=== PATIENT | male | born 1990 | race African-American/Black ===

== ENCOUNTER 2020-08-30 15:38 | Inpatient (IN) | payer OTHER ==
[~2020-08-30] VITALS: Ht 182.9 cm; Wt 102.1 kg
[2020-08-30 17:10] VITALS: BP 133/67
[2020-08-30] MEDS ORDERED: CETIRIZINE HCL 10 MG TABLET PO PRN (17:15)
[2020-08-30] MEDS ORDERED: ACETAMINOPHEN 325 MG TABLET PO PRN (17:15)
[2020-08-30] MEDS ORDERED: OxyCODONE HCL 5 MG IR TABLET PO PRN (17:15)
[2020-08-30 17:45] VITALS: BP 133/67
[2020-08-30] MEDS ORDERED: ONDANSETRON HCL 4 MG TABLET PO PRN (17:45)
[2020-08-30] MEDS: ACETAMINOPHEN 325 MG TABLET PO SCH ×2 (18:48→23:11)
[2020-08-30] MEDS: DOCUSATE SODIUM 100 MG CAPSULE PO SCH (21:08)
[2020-08-30] MEDS: MELATONIN 3 MG TABLET PO PRN (21:08)
[2020-08-30] MEDS: SENNA 187 MG TABLET PO SCH (21:09)
[2020-08-30] MEDS: OxyCODONE HCL 10 MG IR TABLET PO PRN (21:20)
[2020-08-30] MEDS: CYCLOBENZAPRINE HCL 10 MG TABLET PO PRN (21:23)
[2020-08-30] MEDS ORDERED: HYDROmorphone 2 MG/ML SYRINGE IVP ONE (21:45)
[2020-08-30] MEDS: GABAPENTIN 300 MG CAPSULE PO SCH (23:11)
[2020-08-31] MEDS ORDERED: INFLUENZA VIRUS VACCINE QVS 2020-21 (6MO+)/PF 60 MCG/0.5 ML SYRINGE IM ONE (00:45)
[2020-08-31 01:22] VITALS: BP 126/60
[2020-08-31] MEDS: OxyCODONE HCL 10 MG IR TABLET PO PRN ×6 (01:22→21:53)
[2020-08-31] MEDS: ACETAMINOPHEN 325 MG TABLET PO SCH ×4 (05:49→23:37)
[2020-08-31 07:29] LABS: BASOPHILS % (AUTO) 0.3 % (0.0-2.0); HEMATOCRIT 23.1 % (41-53); HEMOGLOBIN 7.9 g/dL (13.5-17.5); LYMPHOCYTES # (AUTO) 1.8 K/uL (1.0-4.8); MEAN CORPUSCULAR VOLUME 80 fL (80-100); MONOCYTES # (AUTO) 0.8 K/uL (0.1-1.0); MONOCYTES % (AUTO) 7.6 % (2.0-9.0); NEUTROPHILS # (AUTO) 7.4 K/uL (1.8-7.7); NEUTROPHILS % (AUTO) 71.1 % (40.0-70.0); PLATELET COUNT (AUTO) 407 K/uL (150-450); RED BLOOD CELL COUNT(AUTO) 2.91 MIL/uL (4.50-5.90); RED CELL DISTRIBUTION WIDTH 14.6 % (11.5-14.5)
[2020-08-31 07:50] LABS: ALANINE AMINOTRANSFERASE 72 U/L (12-78); ALBUMIN 2.6 g/dL (3.4-5.0); ALKALINE PHOSPHATASE 89 U/L (46-116); ANION GAP 8 mmol/L (8-16); ASPARTATE AMINOTRANSFERASE 32 U/L (15-37); BILIRUBIN,TOTAL 0.6 mg/dL (0.1-1.0); CALCIUM, TOTAL 8.8 mg/dL (8.8-10.5); CARBON DIOXIDE 26 mmol/L (22-29); CHLORIDE 102 mmol/L (98-107); CREATININE 0.71 mg/dL (0.60-1.30); GLOMERULAR FILTR. RATE CALC > 60 mL/min (>60); GLUCOSE,RANDOM 105 mg/dL (70-110); POTASSIUM 3.9 mmol/L (3.5-5.1); SODIUM SERUM 136 mmol/L (136-145); TOTAL PROTEIN, SERUM 6.3 g/dL (6.4-8.2); UREA NITROGEN, BLOOD 13 mg/dL (7-18)
[2020-08-31] MEDS: CYCLOBENZAPRINE HCL 10 MG TABLET PO PRN (08:16)
[2020-08-31] MEDS: DOCUSATE SODIUM 100 MG CAPSULE PO SCH ×2 (08:16→21:00)
[2020-08-31] MEDS: CELECOXIB 200 MG CAPSULE PO SCH (08:16)
[2020-08-31] MEDS: GABAPENTIN 300 MG CAPSULE PO SCH ×3 (08:16→23:37)
[2020-08-31] MEDS: ENOXAPARIN SODIUM 40 MG/0.4 ML PF SYRINGE SQ SCH (08:17)
[2020-08-31] MEDS: POLYETHYLENE GLYCOL 3350 17 GM PACKET PO SCH (08:17)
[2020-08-31 09:15] VITALS: BP 129/72
[2020-08-31 18:03] VITALS: BP 128/69
[2020-08-31] MEDS: SENNA 187 MG TABLET PO SCH (21:00)
[2020-08-31] MEDS: MELATONIN 3 MG TABLET PO PRN (21:51)
[2020-09-01] MEDS: OxyCODONE HCL 10 MG IR TABLET PO PRN ×5 (01:53→21:29)
[2020-09-01] MEDS: ACETAMINOPHEN 325 MG TABLET PO SCH ×4 (05:39→23:47)
[2020-09-01 08:01] VITALS: BP 126/57
[2020-09-01] MEDS: POLYETHYLENE GLYCOL 3350 17 GM PACKET PO SCH (09:00)
[2020-09-01] MEDS: GABAPENTIN 300 MG CAPSULE PO SCH ×3 (09:42→23:47)
[2020-09-01] MEDS: DOCUSATE SODIUM 100 MG CAPSULE PO SCH (09:42)
[2020-09-01] MEDS: CELECOXIB 200 MG CAPSULE PO SCH (09:42)
[2020-09-01] MEDS: MULTIVITAMINS, THERAPEUTIC TABLET PO SCH (09:42)
[2020-09-01] MEDS: ENOXAPARIN SODIUM 40 MG/0.4 ML PF SYRINGE SQ SCH (09:43)
[2020-09-01] MEDS: FERROUS SULFATE 325 MG EC TABLET PO SCH (12:50)
[2020-09-01 16:26] VITALS: BP 128/69
[2020-09-01] MEDS: SENNA 187 MG TABLET PO SCH (21:00)
[2020-09-01] MEDS: MELATONIN 3 MG TABLET PO PRN (21:29)
[2020-09-02 00:10] VITALS: BP 129/62
[2020-09-02] MEDS: OxyCODONE HCL 10 MG IR TABLET PO PRN ×5 (01:50→20:00)
[2020-09-02] MEDS: ACETAMINOPHEN 325 MG TABLET PO SCH ×4 (06:01→23:29)
[2020-09-02] MEDS: CELECOXIB 200 MG CAPSULE PO SCH (07:50)
[2020-09-02] MEDS: FERROUS SULFATE 325 MG EC TABLET PO SCH (07:50)
[2020-09-02] MEDS: GABAPENTIN 300 MG CAPSULE PO SCH ×3 (07:50→23:28)
[2020-09-02 08:02] VITALS: BP 131/79
[2020-09-02] MEDS: DOCUSATE SODIUM 100 MG CAPSULE PO SCH ×2 (09:00→20:04)
[2020-09-02] MEDS: POLYETHYLENE GLYCOL 3350 17 GM PACKET PO SCH (09:00)
[2020-09-02] MEDS: MULTIVITAMINS, THERAPEUTIC TABLET PO SCH (10:39)
[2020-09-02] MEDS: ENOXAPARIN SODIUM 40 MG/0.4 ML PF SYRINGE SQ SCH (10:40)
[2020-09-02 19:25] VITALS: BP 134/69
[2020-09-02] MEDS: SENNA 187 MG TABLET PO SCH (20:05)
[2020-09-02] MEDS: MELATONIN 3 MG TABLET PO PRN (21:53)
[2020-09-03] VITALS: BP 120/62
[2020-09-03] MEDS: OxyCODONE HCL 10 MG IR TABLET PO PRN ×4 (01:34→20:16)
[2020-09-03] MEDS: ACETAMINOPHEN 325 MG TABLET PO SCH ×4 (06:07→23:55)
[2020-09-03 06:48] LABS: BASOPHILS % (AUTO) 0.9 % (0.0-2.0); EOSINOPHILS % (AUTO) 3.2 % (1.0-6.0); HEMATOCRIT 26.4 % (41-53); HEMOGLOBIN 8.8 g/dL (13.5-17.5); LYMPHOCYTES # (AUTO) 1.6 K/uL (1.0-4.8); LYMPHOCYTES % (AUTO) 24.1 % (22.0-44.0); MEAN CORPUSCULAR HEMOGLOBIN 26.8 pg (26.0-34.0); MEAN CORPUSCULAR HGB CONC 33.4 G/dL (31.0-37.0); MEAN CORPUSCULAR VOLUME 80 fL (80-100); MONOCYTES # (AUTO) 0.7 K/uL (0.1-1.0); MONOCYTES % (AUTO) 10.6 % (2.0-9.0); NEUTROPHILS % (AUTO) 61.2 % (40.0-70.0); PLATELET COUNT (AUTO) 341 K/uL (150-450); RED BLOOD CELL COUNT(AUTO) 3.28 MIL/uL (4.50-5.90); RED CELL DISTRIBUTION WIDTH 15.9 % (11.5-14.5)
[2020-09-03 06:59] LABS: ANION GAP 7 mmol/L (8-16); CALCIUM, TOTAL 8.6 mg/dL (8.8-10.5); CARBON DIOXIDE 27 mmol/L (22-29); CHLORIDE 105 mmol/L (98-107); CREATININE 0.84 mg/dL (0.60-1.30); GLOMERULAR FILTR. RATE CALC > 60 mL/min (>60); GLUCOSE,RANDOM 95 mg/dL (70-110); POTASSIUM 4.2 mmol/L (3.5-5.1); SODIUM SERUM 139 mmol/L (136-145); UREA NITROGEN, BLOOD 10 mg/dL (7-18)
[2020-09-03 08:40] VITALS: BP 129/64
[2020-09-03] MEDS: MULTIVITAMINS, THERAPEUTIC TABLET PO SCH (08:49)
[2020-09-03] MEDS: GABAPENTIN 300 MG CAPSULE PO SCH ×3 (08:49→23:54)
[2020-09-03] MEDS: FERROUS SULFATE 325 MG EC TABLET PO SCH (08:49)
[2020-09-03] MEDS: CELECOXIB 200 MG CAPSULE PO SCH (08:49)
[2020-09-03] MEDS: ENOXAPARIN SODIUM 40 MG/0.4 ML PF SYRINGE SQ SCH (08:50)
[2020-09-03] MEDS: POLYETHYLENE GLYCOL 3350 17 GM PACKET PO SCH (08:51)
[2020-09-03] MEDS: DOCUSATE SODIUM 100 MG CAPSULE PO SCH ×2 (08:51→20:17)
[2020-09-03 14:45] VITALS: BP 107/69
[2020-09-03] MEDS: SENNA 187 MG TABLET PO SCH (20:17)
[2020-09-04 00:15] VITALS: BP 127/62
[2020-09-04] MEDS: ACETAMINOPHEN 325 MG TABLET PO SCH ×4 (05:56→23:03)
[2020-09-04] MEDS: FERROUS SULFATE 325 MG EC TABLET PO SCH (07:30)
[2020-09-04 08:18] VITALS: BP 120/67
[2020-09-04] MEDS: CELECOXIB 200 MG CAPSULE PO SCH (08:39)
[2020-09-04] MEDS: GABAPENTIN 300 MG CAPSULE PO SCH ×3 (08:39→23:04)
[2020-09-04] MEDS: POLYETHYLENE GLYCOL 3350 17 GM PACKET PO SCH (09:00)
[2020-09-04] MEDS: DOCUSATE SODIUM 100 MG CAPSULE PO SCH ×2 (09:00→20:05)
[2020-09-04] MEDS: MULTIVITAMINS, THERAPEUTIC TABLET PO SCH (09:04)
[2020-09-04] MEDS: ENOXAPARIN SODIUM 40 MG/0.4 ML PF SYRINGE SQ SCH (09:04)
[2020-09-04 15:49] VITALS: BP 128/75
[2020-09-04] MEDS: OxyCODONE HCL 10 MG IR TABLET PO PRN (20:03)
[2020-09-04] MEDS: SENNA 187 MG TABLET PO SCH (20:05)
[2020-09-05 00:44] VITALS: BP 126/72
[2020-09-05] MEDS: ACETAMINOPHEN 325 MG TABLET PO SCH ×3 (06:04→17:34)
[2020-09-05 08:01] VITALS: BP 125/65
[2020-09-05] MEDS: MULTIVITAMINS, THERAPEUTIC TABLET PO SCH (08:30)
[2020-09-05] MEDS: GABAPENTIN 300 MG CAPSULE PO SCH ×3 (08:30→22:00)
[2020-09-05] MEDS: CELECOXIB 200 MG CAPSULE PO SCH (08:30)
[2020-09-05] MEDS: FERROUS SULFATE 325 MG EC TABLET PO SCH (08:30)
[2020-09-05] MEDS: DOCUSATE SODIUM 100 MG CAPSULE PO SCH ×2 (09:00→19:58)
[2020-09-05] MEDS: POLYETHYLENE GLYCOL 3350 17 GM PACKET PO SCH (09:00)
[2020-09-05] MEDS: ENOXAPARIN SODIUM 40 MG/0.4 ML PF SYRINGE SQ SCH (09:12)
[2020-09-05 17:45] VITALS: BP 125/70
[2020-09-05] MEDS: SENNA 187 MG TABLET PO SCH (19:58)
[2020-09-05] MEDS: OxyCODONE HCL 10 MG IR TABLET PO PRN (22:00)
[2020-09-05] MEDS: MELATONIN 3 MG TABLET PO PRN (22:00)
[2020-09-06] VITALS: BP 112/69
[2020-09-06] MEDS: ACETAMINOPHEN 325 MG TABLET PO SCH ×5 (06:15→22:48)
[2020-09-06] MEDS: POLYETHYLENE GLYCOL 3350 17 GM PACKET PO SCH (09:00)
[2020-09-06] MEDS: DOCUSATE SODIUM 100 MG CAPSULE PO SCH ×2 (09:00→20:24)
[2020-09-06 09:06] VITALS: BP 131/79
[2020-09-06] MEDS: MULTIVITAMINS, THERAPEUTIC TABLET PO SCH (09:38)
[2020-09-06] MEDS: CELECOXIB 200 MG CAPSULE PO SCH (09:38)
[2020-09-06] MEDS: ENOXAPARIN SODIUM 40 MG/0.4 ML PF SYRINGE SQ SCH (09:38)
[2020-09-06] MEDS: FERROUS SULFATE 325 MG EC TABLET PO SCH (09:38)
[2020-09-06] MEDS: GABAPENTIN 300 MG CAPSULE PO SCH ×3 (09:38→22:47)
[2020-09-06] MEDS: OxyCODONE HCL 10 MG IR TABLET PO PRN ×3 (13:49→22:07)
[2020-09-06 18:00] VITALS: BP 135/70
[2020-09-06] MEDS: SENNA 187 MG TABLET PO SCH (20:24)
[2020-09-06] MEDS: MELATONIN 3 MG TABLET PO PRN (22:07)
[2020-09-07 00:47] VITALS: BP 116/53
[2020-09-07] MEDS: ACETAMINOPHEN 325 MG TABLET PO SCH ×4 (06:01→22:54)
[2020-09-07] MEDS: FERROUS SULFATE 325 MG EC TABLET PO SCH (07:48)
[2020-09-07] MEDS: CELECOXIB 200 MG CAPSULE PO SCH (07:48)
[2020-09-07] MEDS: GABAPENTIN 300 MG CAPSULE PO SCH ×3 (07:48→22:54)
[2020-09-07] MEDS: MULTIVITAMINS, THERAPEUTIC TABLET PO SCH (07:48)
[2020-09-07] MEDS: ENOXAPARIN SODIUM 40 MG/0.4 ML PF SYRINGE SQ SCH (07:49)
[2020-09-07] MEDS: DOCUSATE SODIUM 100 MG CAPSULE PO SCH ×2 (08:22→21:00)
[2020-09-07] MEDS: POLYETHYLENE GLYCOL 3350 17 GM PACKET PO SCH (08:23)
[2020-09-07 09:20] VITALS: BP 133/64
[2020-09-07] MEDS: OxyCODONE HCL 10 MG IR TABLET PO PRN ×2 (15:29→21:58)
[2020-09-07 16:50] VITALS: BP 120/76
[2020-09-07] MEDS: SENNA 187 MG TABLET PO SCH (21:00)
[2020-09-07] MEDS: MELATONIN 3 MG TABLET PO PRN (21:59)
[2020-09-08 00:17] VITALS: BP 121/71
[2020-09-08] MEDS: ACETAMINOPHEN 325 MG TABLET PO SCH ×4 (06:18→22:50)
[2020-09-08 07:06] VITALS: BP 132/75
[2020-09-08] MEDS: CELECOXIB 200 MG CAPSULE PO SCH (08:16)
[2020-09-08] MEDS: ENOXAPARIN SODIUM 40 MG/0.4 ML PF SYRINGE SQ SCH (08:16)
[2020-09-08] MEDS: POLYETHYLENE GLYCOL 3350 17 GM PACKET PO SCH (08:16)
[2020-09-08] MEDS: FERROUS SULFATE 325 MG EC TABLET PO SCH (08:16)
[2020-09-08] MEDS: GABAPENTIN 300 MG CAPSULE PO SCH ×4 (08:16→22:49)
[2020-09-08] MEDS: MULTIVITAMINS, THERAPEUTIC TABLET PO SCH (08:16)
[2020-09-08] MEDS: DOCUSATE SODIUM 100 MG CAPSULE PO SCH ×2 (08:16→19:45)
[2020-09-08 15:12] VITALS: BP 114/57
[2020-09-08] MEDS: OxyCODONE HCL 10 MG IR TABLET PO PRN ×2 (16:46→21:49)
[2020-09-08] MEDS: SENNA 187 MG TABLET PO SCH (19:45)
[2020-09-09 00:19] VITALS: BP 124/61
[2020-09-09] MEDS: ACETAMINOPHEN 325 MG TABLET PO SCH ×2 (06:00→12:44)
[2020-09-09 08:24] VITALS: BP 136/72
[2020-09-09] MEDS: ENOXAPARIN SODIUM 40 MG/0.4 ML PF SYRINGE SQ SCH (08:59)
[2020-09-09] MEDS: FERROUS SULFATE 325 MG EC TABLET PO SCH (08:59)
[2020-09-09] MEDS: CELECOXIB 200 MG CAPSULE PO SCH (08:59)
[2020-09-09] MEDS: MULTIVITAMINS, THERAPEUTIC TABLET PO SCH (08:59)
[2020-09-09] MEDS: GABAPENTIN 300 MG CAPSULE PO SCH ×2 (08:59→16:49)
[2020-09-09] MEDS: POLYETHYLENE GLYCOL 3350 17 GM PACKET PO SCH (09:00)
[2020-09-09] MEDS: DOCUSATE SODIUM 100 MG CAPSULE PO SCH ×2 (09:00→20:57)
[2020-09-09] MEDS: OxyCODONE HCL 10 MG IR TABLET PO PRN ×3 (10:35→22:04)
[2020-09-09] MEDS ORDERED: ACETAMINOPHEN 325 MG TABLET PO PRN (13:15)
[2020-09-09 15:30] VITALS: BP 132/76
[2020-09-09] MEDS: SENNA 187 MG TABLET PO SCH (20:57)
[2020-09-10 03:00] VITALS: BP 125/69
[2020-09-10] MEDS: OxyCODONE HCL 10 MG IR TABLET PO PRN ×4 (03:00→23:36)
[2020-09-10] MEDS: FERROUS SULFATE 325 MG EC TABLET PO SCH (08:17)
[2020-09-10] MEDS: MULTIVITAMINS, THERAPEUTIC TABLET PO SCH (08:17)
[2020-09-10] MEDS: GABAPENTIN 300 MG CAPSULE PO SCH ×4 (08:17→23:36)
[2020-09-10] MEDS: CELECOXIB 200 MG CAPSULE PO SCH (08:17)
[2020-09-10] MEDS: POLYETHYLENE GLYCOL 3350 17 GM PACKET PO SCH (08:22)
[2020-09-10] MEDS: DOCUSATE SODIUM 100 MG CAPSULE PO SCH ×2 (08:22→19:25)
[2020-09-10] MEDS: ENOXAPARIN SODIUM 40 MG/0.4 ML PF SYRINGE SQ SCH (08:22)
[2020-09-10 08:54] VITALS: BP 123/63
[2020-09-10] MEDS ORDERED: ASPI-1149 PO (10:29)
[2020-09-10] MEDS ORDERED: DOCU-275 PO (10:29)
[2020-09-10] MEDS ORDERED: FERR-89 PO (10:29)
[2020-09-10] MEDS ORDERED: CELE200 PO (10:29)
[2020-09-10] MEDS ORDERED: MULT-1119 PO (10:29)
[2020-09-10] MEDS ORDERED: GABA-1181 PO (10:29)
[2020-09-10] MEDS: ASPIRIN 325 MG EC TABLET PO SCH (10:31)
[2020-09-10 10:48] LABS: BASOPHILS % (AUTO) 0.5 % (0.0-2.0); EOSINOPHILS % (AUTO) 3.4 % (1.0-6.0); HEMATOCRIT 32.1 % (41-53); HEMOGLOBIN 10.5 g/dL (13.5-17.5); LYMPHOCYTES # (AUTO) 1.5 K/uL (1.0-4.8); LYMPHOCYTES % (AUTO) 26.4 % (22.0-44.0); MEAN CORPUSCULAR HEMOGLOBIN 26.4 pg (26.0-34.0); MEAN CORPUSCULAR HGB CONC 32.6 G/dL (31.0-37.0); MEAN CORPUSCULAR VOLUME 81 fL (80-100); MONOCYTES # (AUTO) 0.4 K/uL (0.1-1.0); MONOCYTES % (AUTO) 7.3 % (2.0-9.0); NEUTROPHILS # (AUTO) 3.5 K/uL (1.8-7.7); NEUTROPHILS % (AUTO) 62.4 % (40.0-70.0); PLATELET COUNT (AUTO) 292 K/uL (150-450); RED BLOOD CELL COUNT(AUTO) 3.97 MIL/uL (4.50-5.90); RED CELL DISTRIBUTION WIDTH 16.1 % (11.5-14.5)
[2020-09-10 16:00] VITALS: BP 119/61
[2020-09-10] MEDS: SENNA 187 MG TABLET PO SCH (19:25)
[2020-09-10 23:36] VITALS: BP 118/65
[2020-09-11] MEDS: DOCUSATE SODIUM 100 MG CAPSULE PO SCH (09:00)
[2020-09-11] MEDS: POLYETHYLENE GLYCOL 3350 17 GM PACKET PO SCH (09:00)
[2020-09-11] MEDS: ASPIRIN 325 MG EC TABLET PO SCH (09:20)
[2020-09-11] MEDS: GABAPENTIN 300 MG CAPSULE PO SCH (09:21)
[2020-09-11] MEDS: FERROUS SULFATE 325 MG EC TABLET PO SCH (09:21)
[2020-09-11] MEDS: CELECOXIB 200 MG CAPSULE PO SCH (09:21)
[2020-09-11] MEDS: MULTIVITAMINS, THERAPEUTIC TABLET PO SCH (09:21)
[2020-09-11 09:37] VITALS: BP 132/70
[2020-09-11] MEDS ORDERED: OXYC5 PO (11:55)
== END 2020-09-11 13:43 | disposition home health service (06) | DRG 563 ==
LOC: 2WR 17:00
PROVIDERS: ADMIT Physical Medicine & Rehabilitation; ATTEND Physical Medicine & Rehabilitation
DX: S82.042A Displaced comminuted fracture of left patella, initial encounter for closed fracture (principal); S42.441A Displaced fracture (avulsion) of medial epicondyle of right humerus, initial encounter for closed fracture; S42.251A Displaced fracture of greater tuberosity of right humerus, initial encounter for closed fracture; S82.832A Other fracture of upper and lower end of left fibula, initial encounter for closed fracture; S43.51XA Sprain of right acromioclavicular joint, initial encounter; S14.3XXA Injury of brachial plexus, initial encounter; R26.9 Unspecified abnormalities of gait and mobility; V89.2XXA Person injured in unspecified motor-vehicle accident, traffic, initial encounter; Z98.890 Other specified postprocedural states; G83.21 Monoplegia of upper limb affecting right dominant side
CPT/HCPCS: 87081; 90686; 97110; 97112; 97116; 97140; 97150; 97162; 97166; 97530; 97535; 99366; J1170; J1650